=== PATIENT | male | born 1975 | race Caucasian/White ===

== ENCOUNTER 2019-05-27 13:07 | Emergency (ER) | payer BC ==
[~2019-05-27] VITALS: Ht 185.4 cm; Wt 120.0 kg
[~2019-05-27 13:07] MED LIST: CIPROFLOXACN500 MG PO; FENTANYL50 MCG/HR TD; NEURONTIN300 MG PO; PERCOCET1 TA4 PO; XANAX1 MG PO; ZANAFLEX4 MG PO; ZOFRAN ODT4 MG PO
[2019-05-27] MEDS ORDERED: ALPRAZOLAM2 M1 PO (14:04)
[2019-05-27] MEDS ORDERED: DICLOFENAC SODIUM1 % TOP (14:04)
[2019-05-27] MEDS ORDERED: FENTANYL75 MCG/HR TD (14:05)
[2019-05-27] MEDS ORDERED: PRAZOSIN HYDROCH5 MG PO (14:06)
[2019-05-27] MEDS ORDERED: OMEPRAZOLE DR20 MG PO (14:07)
[2019-05-27] MEDS ORDERED: SERTRALINE HCL100 MG PO (14:07)
[2019-05-27] MEDS ORDERED: QUETIAPINE FUMA25 MG PO (14:08)
[2019-05-27 15:30] VITALS: BP 129/74
== END 2019-05-27 15:30 | disposition home or self-care (01) | DRG 999 ==
LOC: ED 13:07
DX: S93.401A Sprain of unspecified ligament of right ankle, initial encounter (principal); S22.080A Wedge compression fracture of T11-T12 vertebra, initial encounter for closed fracture; W01.0XXA Fall on same level from slipping, tripping and stumbling without subsequent striking against object, initial encounter; X58.XXXA Exposure to other specified factors, initial encounter

== ENCOUNTER 2021-03-18 18:27 | Observation (INO) | payer OTHER ==
[~2021-03-18] VITALS: Ht 182.9 cm; Wt 115.0 kg
[~2021-03-18 18:27] MED LIST changes: +ALPRAZOLAM2 M1 PO; +DICLOFENAC SODIUM1 % TOP; +FENTANYL75 MCG/HR TD; +OMEPRAZOLE DR20 MG PO; +PRAZOSIN HYDROCH5 MG PO; +QUETIAPINE FUMA25 MG PO; +SERTRALINE HCL100 MG PO
--- NOTE | 2021-03-18 18:30 | NUR ---
PT IMMEDIATELY TO ROOM VIA MD CHELA AT BEDSIDE.
[2021-03-18 19:04] LABS: HEMATOCRIT 46.3 % (39.0-50.0); HEMOGLOBIN 15.6 g/dl (14.0-18.0); IMMATURE GRANULOCYTES 0.3 % (0.0-5.0); MEAN CELL VOLUME 92.4 fL CALC (80.0-100.0); MEAN CORPUSCULAR HGB 31.1 pG CALC (26.0-32.0); MEAN CORPUSCULAR HGB CONC 33.7 g/dL CAL (32.0-36.0); NEUT# 11.37 thou/uL (1.82-7.42); RED BLOOD COUNT 5.01 mill/uL (4.70-6.10); RED CELL DISTRI WIDTH 12.6 % (11.5-15.5)
[2021-03-18 19:19] LABS: ALBUMIN 5.2 g/dL (3.2-5.0); ALKALINE PHOSPHATASE 70 u/l (38-126); ANION GAP 25 (6-22 (CALC)); BILIRUBIN, TOTAL 0.8 mg/dL (0.0-1.4); BUN 23 mg/dL (9-20); BUN/CREATININE RATIO 16 (12-20 (CALC)); CARBON DIOXIDE 33 mmol/l (22-30); CHLORIDE 85 mmol/l (95-108); CREATININE 1.5 mg/dL (0.7-1.3); GFR 50 ML/MIN (>=60 (CALC)); GFR FOR AFR.AMER. > 60 ML/MIN (>=60 (CALC)); LIPASE 73 u/l (23-300); MAGNESIUM 1.9 mg/dL (1.6-2.3); POTASSIUM 3.1 mmol/l (3.5-5.1); SGOT/AST 39 u/l (17-59); SODIUM 139 mmol/l (137-146); TOTAL PROTEIN 9.3 g/dL (6.3-8.2)
--- NOTE | 2021-03-18 19:30 | NUR ---
NON-REBREATHER WITHOUT O2 APPLIED PER MD
--- NOTE | 2021-03-18 20:30 | NUR ---
PATIENT RESITNG, EYES CLOSED. NO DISTRESS.
--- NOTE | 2021-03-18 21:13 | NUR ---
BLADDER SCAN COMPLETED, 68ML POST VOID
[2021-03-18] MEDS ORDERED: ABILIFY5 MG PO (21:18)
[2021-03-18] MEDS ORDERED: MORPHINE SUL30 M3 PO (21:19)
[2021-03-18 21:22] LABS: URINE BILIRUBIN - DIPSTICK NEGATIVE (NEGATIVE); URINE BLOOD DIPSTICK NEGATIVE (NEGATIVE); URINE COLOR YELLOW; URINE GLUCOSE - DIPSTICK NEGATIVE (NEGATIVE); URINE KETONE NEGATIVE (NEGATIVE); URINE LEUK ESTERASE NEGATIVE (NEGATIVE); URINE PH 8.5 (4.5-8.0); URINE PROTEIN - DIPSTICK 100 mg/dL (NEG-TRACE); URINE SPECIFIC GRAVITY 1.015; URINE UROBILINOGEN - DIPSTICK 0.2 E.U./dL (0.2)
[2021-03-18 21:24] LABS: URINE NITRITE - DIPSTICK NEGATIVE (Negative)
[2021-03-18 21:30] LABS: URINE RBC 0-2 RBC/hpf (0-5); URINE WBC 0-2 WBC/hpf (0-5)
--- NOTE | 2021-03-18 21:31 | NUR ---
REPORT RECEIVED FROM ED FROM Marj CHA RN.
--- NOTE | 2021-03-18 21:34 | NUR ---
REPORT CALLED TO JOSY
--- NOTE | 2021-03-18 21:48 | NUR ---
PATIENT ARRIVED ON FLOOR ACCOMPANIED BY Marj CHA RN.
--- NOTE | 2021-03-18 21:48 | NUR ---
PATIENT TRANSFERED TO BED FROM [facility] WITH ASSIT OF 3. ADMISSION ASSEMENT COMPLETED AT THIS TIME. #20G IN THE RIGHT AC INFUSING NORMAL SALINE AT 100ML/HR. PER Marj CHA RN. PATIENT HAS ALREADY BEEN GIVEN 2100 POTASSIUM 20 mEq PO. PATIENT STATES HE IS TIRED AND ALL HE WANTS TO DO IS SLEEP. NORMAL HEART SOUNDS, LUNGS CLEAR BILATERALLY, LAST REPORTED BM THIS AFTERNOON, PER PATIENT SMALL LIQUID STOOL. PATIENT HAS NOT VOMITED OR HAD NAUSEA SINCE ARRIVING AT THE ER. REASSED B/P MANUALLY, 145/65, PATIENT DOES NOT APPEAR TO BE IN ANY DISTRESS AT THIS TIME AND IS REQUESTING A BLANKET SO HE CAN "GO TO SLEEP"
--- NOTE | 2021-03-18 21:50 | NUR ---
Admission Note Report Given to: Transported by: Wheelchair X Stretcher Transported with: X Nurse Transporter X Patent IV O2 X Picking Machine Operator Helper Location: ICU X [facility] REPORT TO JOSY
[2021-03-18 22:00] VITALS: BP 155/94
[2021-03-18 22:20] LABS: BUN 21 mg/dL (9-20); BUN/CREATININE RATIO 18 (12-20 (CALC)); CARBON DIOXIDE 33 mmol/l (22-30); CHLORIDE 92 mmol/l (95-108); CREATININE 1.2 mg/dL (0.7-1.3); GFR > 60 ML/MIN (>=60 (CALC)); GFR FOR AFR.AMER. > 60 ML/MIN (>=60 (CALC)); SODIUM 139 mmol/l (137-146)
[2021-03-18 22:24] LABS: ANION GAP 16 (6-22 (CALC)); POTASSIUM 2.4 mmol/l (3.5-5.1)
--- NOTE | 2021-03-18 23:00 | NUR ---
PATIENT IS REQUESTING "SOMETHING FOR NAUSEA". ZOFRAN ADMINISTERED PER EMAR. SEE EMAR.
--- NOTE | 2021-03-18 23:30 | NUR ---
PATIENT WOULD LIKE TO HAVE ATIVAN TO SLEEP. INFORMED PATIENT HE CURRENTLY DOES NOT HAVE A ATIVAN ORDERED BUT HE DOES HAVE XANAX, PATIENT VERBALIZES AGREEMENT. XANAX ADMINISTERED PER EMAR. SEE EMAR
--- NOTE | 2021-03-19 00:40 | NUR ---
BANDAR RECIVED FROM DR RIVERA IN ER REGARDING PATIENTS POTASSIUM LEVELS. 40MEQ IN 1000ML OF NACL ORDERED TO INFUSE AT 250ML/HR.
--- NOTE | 2021-03-19 01:00 | NUR ---
CALL RECEIVED FROM ER. ABNORMAL TELEMETRY READING. STAT EKG AND TROPONIN ORDERED.
--- NOTE | 2021-03-19 02:09 | NUR ---
PATIENT SOUND ASLEEP. NO APPARENT DISTRESS NOTED AT THIS TIME. NEG TROPONIN RECEIVED.
[2021-03-19 04:00] VITALS: BP 127/82
--- NOTE | 2021-03-19 05:30 | NUR ---
ADMINISTERED ZOFRAN PER EMAR, SEE EMAR
[2021-03-19 05:45] LABS: IMMATURE GRANULOCYTES 0.5 % (0.0-5.0); MEAN CELL VOLUME 93.6 fL CALC (80.0-100.0); MEAN CORPUSCULAR HGB 30.8 pG CALC (26.0-32.0); MEAN CORPUSCULAR HGB CONC 32.9 g/dL CAL (32.0-36.0); NEUT# 8.15 thou/uL (1.82-7.42); RED BLOOD COUNT 4.38 mill/uL (4.70-6.10); RED CELL DISTRI WIDTH 12.5 % (11.5-15.5)
[2021-03-19 05:50] LABS: HEMOGLOBIN 13.5 g/dl (14.0-18.0)
[2021-03-19 06:15] LABS: ALBUMIN 4.2 g/dL (3.2-5.0); BUN 18 mg/dL (9-20); CARBON DIOXIDE 29 mmol/l (22-30); CHLORIDE 97 mmol/l (95-108); GFR > 60 ML/MIN (>=60 (CALC)); GFR FOR AFR.AMER. > 60 ML/MIN (>=60 (CALC)); SODIUM 137 mmol/l (137-146)
[2021-03-19 06:21] LABS: POTASSIUM 3.4 mmol/l (3.5-5.1)
[2021-03-19 07:00] VITALS: BP 150/96
--- NOTE | 2021-03-19 07:00 | NUR ---
PATIENT LAYING IN BED AT THIS TIME. PATIETN ALERT AND ORIENTED X 3. BLADDER SCANNED AND 15ML PRESENT REMINDED PATINET TO EMPTY BLADDER. TELE MONITOR IN PLACE AT THIS TIME. PATIENT DENEIS ANY NEEDS MICROBIOLOGY PROFESSOR DONE AT THIS TIME. SIDERAILS ARE UP CALL LIGHT WITHIN REACH. LUNG [place] ARE CLEAR.
[2021-03-19] MEDS ORDERED: MS CONTIN60 MG PO (07:26)
[2021-03-19] MEDS ORDERED: OXYCODONE15 MG PO (07:27)
[2021-03-19] MEDS ORDERED: ZOFRAN4 MG/TAB PO (10:21)
--- NOTE | 2021-03-19 11:04 | NUR ---
PATIENT D/C AT THIS TIME. PATIENT VERBALIZES UNDERSTANDIN OF D/C TELE REMOVED AT THIS TIME AND ED NOTIFIED
--- NOTE | 2021-03-19 11:22 | NUR ---
Discharge instructions given. Patient verbalizes understanding of same. Discharged in stable condition via Wheelchair to Home with family. All belongings sent with pt.
== END 2021-03-19 11:22 | disposition home or self-care (01) | DRG 641 ==
LOC: ED 18:27 → ED-I 20:47 → ED 21:01 → MS2 21:02
PROVIDERS: Emergency Medicine; Internal Medicine Nephrology; ADMIT Internal Medicine; ATTEND Internal Medicine
DX: E87.4 Mixed disorder of acid-base balance (principal); N17.9 Acute kidney failure, unspecified; F11.23 Opioid dependence with withdrawal; E87.6 Hypokalemia; E86.9 Volume depletion, unspecified; E83.52 Hypercalcemia; I95.9 Hypotension, unspecified; R11.2 Nausea with vomiting, unspecified; R19.7 Diarrhea, unspecified; G89.4 Chronic pain syndrome; N31.9 Neuromuscular dysfunction of bladder, unspecified; M06.9 Rheumatoid arthritis, unspecified; T50.916A Underdosing of multiple unspecified drugs, medicaments and biological substances, initial encounter; Z91.128 Patient's intentional underdosing of medication regimen for other reason; Z20.822 Contact with and (suspected) exposure to COVID-19
CPT/HCPCS: G0378; J2060; S0164

== ENCOUNTER 2022-01-10 14:11 | Emergency (ER) | payer OTHER ==
[~2022-01-10] VITALS: Ht 182.9 cm; Wt 113.6 kg
[~2022-01-10 14:11] MED LIST changes: +ABILIFY5 MG PO; +MORPHINE SUL30 M3 PO; +MS CONTIN60 MG PO; +OXYCODONE15 MG PO; +ZOFRAN4 MG/TAB PO
[2022-01-10 14:41] LABS: HEMATOCRIT 45.2 % (39.0-50.0); IMMATURE GRANULOCYTES 0.4 % (0.0-5.0); MEAN CELL VOLUME 90.6 fL CALC (80.0-100.0); MEAN CORPUSCULAR HGB 31.7 pG CALC (26.0-32.0); NEUT# 8.18 thou/uL (1.82-7.42); RED BLOOD COUNT 4.99 mill/uL (4.70-6.10)
[2022-01-10 14:42] LABS: HEMOGLOBIN 15.8 g/dl (14.0-18.0)
[2022-01-10 14:56] LABS: ACT PARTIAL THROMBO TIME 27.6 SECONDS (20.0-32.5); ALKALINE PHOSPHATASE 85 u/l (38-126); AMYLASE 81 u/l (30-110); ANION GAP 21 (6-22 (CALC)); BILIRUBIN, TOTAL 0.6 mg/dL (0.0-1.4); BUN 13 mg/dL (9-20); BUN/CREATININE RATIO 12 (12-20 (CALC)); CARBON DIOXIDE 24 mmol/l (22-30); CHLORIDE 101 mmol/l (95-108); CREATININE 1.1 mg/dL (0.7-1.3); ETHYL ALCOHOL 0 mg/dl (0-30); GFR > 60 ML/MIN (>=60 (CALC)); GFR FOR AFR.AMER. > 60 ML/MIN (>=60 (CALC)); INTERNATIONAL NORMALIZED RATIO 0.9 RATIO (0.7-1.3); LIPASE 78 u/l (23-300); POTASSIUM 3.5 mmol/l (3.5-5.1); PROTHROMBIN TIME 9.1 SECONDS (9.0-12.5); SGOT/AST 22 u/l (17-59); SODIUM 143 mmol/l (137-146); TOTAL PROTEIN 8.9 g/dL (6.3-8.2)
[2022-01-10 15:03] LABS: ALBUMIN 5.3 g/dL (3.2-5.0)
[2022-01-10 16:49] LABS: URINE BILIRUBIN - DIPSTICK NEGATIVE (NEGATIVE); URINE BLOOD DIPSTICK TRACE-INTACT (NEGATIVE); URINE COLOR YELLOW; URINE GLUCOSE - DIPSTICK NEGATIVE (NEGATIVE); URINE KETONE NEGATIVE (NEGATIVE); URINE LEUK ESTERASE NEGATIVE (NEGATIVE); URINE NITRITE - DIPSTICK NEGATIVE (Negative); URINE PH 8.5 (4.5-8.0); URINE PROTEIN - DIPSTICK NEGATIVE (NEG-TRACE); URINE SPECIFIC GRAVITY 1.015; URINE UROBILINOGEN - DIPSTICK 0.2 E.U./dL (0.2)
[2022-01-10] MEDS ORDERED: METRONIDAZOLE500 MG PO (17:10)
[2022-01-10] MEDS ORDERED: CIPROFLOXACN500 MG PO (17:10)
[2022-01-10] MEDS ORDERED: PROTONIX40 M2 PO (17:11)
[2022-01-10] MEDS ORDERED: ZOFRAN4 MG/TAB PO (17:11)
[2022-01-10 17:12] VITALS: BP 131/83
== END 2022-01-10 18:55 | disposition left against medical advice (07) | DRG 392 ==
LOC: ED 14:11
DX: K52.9 Noninfective gastroenteritis and colitis, unspecified (principal); E87.2 Acidosis; F41.9 Anxiety disorder, unspecified; M79.2 Neuralgia and neuritis, unspecified; Z91.19 Patient's noncompliance with other medical treatment and regimen; Z20.822 Contact with and (suspected) exposure to COVID-19
CPT/HCPCS: J2060; S0164

== ENCOUNTER 2024-09-26 09:54 | Emergency (ER) | payer OTHER, MEDICAID ==
[~2024-09-26] VITALS: Ht 182.9 cm; Wt 122.0 kg
[2024-09-26] VITALS (11 sets, daily range): BP systolic 94–146; BP diastolic 47–83
[~2024-09-26 09:54] MED LIST changes: +METRONIDAZOLE500 MG PO; +PROTONIX40 M2 PO
[2024-09-26] MEDS ORDERED: ONDANSETRON HCl 4 MG/2 ML SDV IV ONE (10:05)
[2024-09-26] MEDS ORDERED: HYDROmorphone HCL 2 MG/AMP IV ONE ×2 (10:05→11:50)
[2024-09-26 10:43] LABS: BASO% 0.4 % (0-3); HEMATOCRIT 41.5 % (39.0-50.0); HEMOGLOBIN 13.8 g/dl (14.0-18.0); IMMATURE GRANULOCYTES 0.3 % (0.0-5.0); LYMPH% 42.7 % (15-41); MEAN CELL VOLUME 96.7 fL CALC (80.0-100.0); MEAN CORPUSCULAR HGB 32.2 pG CALC (26.0-32.0); MEAN CORPUSCULAR HGB CONC 33.3 g/dL CAL (32.0-36.0); MONO% 8.8 % (2-13); NEUT# 4.65 thou/uL (1.82-7.42); NEUT% 46.8 % (42-76); RED BLOOD COUNT 4.29 mill/uL (4.70-6.10); RED CELL DISTRI WIDTH 12.6 % (11.5-15.5)
[2024-09-26 11:14] LABS: ALBUMIN 4.8 g/dL (3.2-5.0); BILIRUBIN, TOTAL 0.5 mg/dL (0.2-1.3); CREATININE 1.3 mg/dL (0.7-1.3); TOTAL PROTEIN 7.5 g/dL (6.3-8.2)
[2024-09-26 11:22] LABS: POTASSIUM 4.4 mmol/l (3.5-5.1)
[2024-09-26] MEDS ORDERED: NAPROXEN500 MG PO (12:35)
[2024-09-26] MEDS ORDERED: TIZANIDINE4 MG PO (12:35)
== END 2024-09-26 12:49 | disposition home or self-care (01) | DRG 552 ==
LOC: ED 09:54
PROVIDERS: Emergency Medicine
DX: S16.1XXA Strain of muscle, fascia and tendon at neck level, initial encounter (principal); S39.012A Strain of muscle, fascia and tendon of lower back, initial encounter; S80.211A Abrasion, right knee, initial encounter; V53.5XXA Driver of pick-up truck or van injured in collision with car, pick-up truck or van in traffic accident, initial encounter
CPT/HCPCS: J1171; J2405